=== PATIENT | male | born 1965 | race Two or more races ===

== ENCOUNTER 2021-06-03 15:07 | Emergency (ER) | payer OTHER ==
[2021-06-03 15:22] VITALS: BP 170/95; PULSE 86; RESP 16; TEMP 97.8
[2021-06-03] MEDS ORDERED: valACYclovir HCL 1,000 MG TABLET PO STA (15:33)
[2021-06-03] MEDS ORDERED: predniSONE 50 MG TAB PO STA (15:33)
--- NOTE | 2021-06-03 15:42 | ED ---
General Adult HPI - General Chief complaint: Neuro Symptoms/Deficit Stated complaint: facial numbness Time Seen by Provider: 06/03/21 15:26 Source: patient, RN notes reviewed Mode of arrival: ambulatory Limitations: no limitations - History of Present Illness Initial comments: Patient is a pleasant 55-year-old male presenting to the emergency department with difficulty with weakness on his right side of his face. Patient noticed this yesterday. It has progressed some since that time. Patient denies visual problems however does have difficulty shutting his eyelid. Patient states it feels a little bit dry. No history of similar symptoms previously. No speech problems or cognition problems. No difficulty with walking or balance. No extremity weakness or paresthesias or loss of sensation. - Related Data Previous Rx's Medication Instructions Recorded predniSONE 50 mg PO DAILY #6 tab 06/03/21 valACYclovir HCL [Valtrex] 1,000 mg PO Q8HR #21 tab 06/03/21 Allergies Allergy/AdvReac Type Severity Reaction Status Date / Time No Known Allergies Allergy Verified 06/03/21 15:16 Review of Systems ROS Statement: Those systems with pertinent positive or pertinent negative responses have been documented in the HPI. ROS Other: All systems not noted in ROS Statement are negative. Constitutional: Denies: fever Eyes: Reports: as per HPI. Denies: eye pain ENT: Denies: ear pain Respiratory: Denies: cough Cardiovascular: Denies: chest pain Endocrine: Denies: fatigue Gastrointestinal: Denies: nausea Genitourinary: Denies: dysuria Neurological: Reports: as per HPI. Denies: headache, confusion, abnormal gait Past Medical History Past Medical History: Diabetes Mellitus, Hypertension History of Any Multi-Drug Resistant Organisms: None Reported Past Surgical History: No Surgical Hx Reported Past Psychological History: No Psychological Hx Reported Smoking Status: Never smoker Past Alcohol Use History: None Reported Past Drug Use History: None Reported General Exam Limitations: no limitations General appearance: alert, in no apparent distress Head exam: Present: normocephalic Eye exam: Present: normal appearance, PERRL, EOMI ENT exam: Present: TM's normal bilaterally Neck exam: Present: normal inspection Respiratory exam: Present: normal lung sounds bilaterally Cardiovascular Exam: Present: regular rate, normal rhythm GI/Abdominal exam: Present: soft. Absent: tenderness Extremities exam: Present: normal inspection Neurological exam: Present: alert, oriented X3, CN II-XII intact (Except for right-sided facial weakness that does include the forehead. Difficulty closing the right eye) Expanded Neurological exam: Present: protecting the airway Patient oriented to: Present: person, place, time Speech: Present: fluid speech Cranial nerves: EOM's Intact: Normal, Facial Palsy without Forehead Movement: Abnormal Right Sensory exam: Upper Extremity Light Touch: Normal, Lower Extremity Light Touch: Normal Motor strength exam: RUE: 5, LUE: 5, RLE: 5, LLE: 5 Eye Response: (4) open spontaneously Motor Response: (6) obeys commands Verbal Response: (5) oriented Psychiatric exam: Present: normal affect, normal mood Skin exam: Present: normal color Course Vital Signs 06/03/21 15:16 Temperature 97.8 F Pulse Rate 86 Respiratory 16 Rate Blood Pressure 170/95 O2 Sat by Pulse 96 Oximetry Disposition Clinical Impression: Mariee's palsy Disposition: HOME SELF-CARE Condition: Stable Instructions (If sedation given, give patient instructions): Mariee Palsy (ED) Additional Instructions: Please do follow-up through primary care physician in the next day or 2 for recheck. Prescriptions have been sent to pharmacy. Apply Lacri-Lube or similar eye lubricant 4 times daily and before bed to the right eye. Tape the right eye shut at bedtime. Return for confusion, speech problems, extremity weakness, worsening or changing symptoms or other concerns. Prescriptions: predniSONE 50 mg PO DAILY #6 tab valACYclovir HCL [Valtrex] 1,000 mg PO Q8HR #21 tab Is patient prescribed a controlled substance at d/c from ED?: No Referrals: Steve Ceballos MD [STAFF PHYSICIAN] - 1-2 days Time of Disposition: 15:41
== END 2021-06-03 15:49 | disposition home or self-care (01) ==
LOC: EC 15:07
DX: G51.0 Bell's palsy (principal); E11.9 Type 2 diabetes mellitus without complications; I10 Essential (primary) hypertension
CPT/HCPCS: 99284; J7512

== ENCOUNTER 2021-06-05 19:15 | Emergency (ER) | payer OTHER ==
[2021-06-05 19:32] LABS: Basophils % (A) 0 %; Eosinophils # (A) 0.1 k/uL (0-0.7); Eosinophils % (A) 1 %; HCT 42.1 % (39.0-53.0); HGB 14.5 gm/dL (13.0-17.5); Lymphocytes % (A) 24 %; MCH 29.3 pg (25.0-35.0); MCHC 34.6 g/dL (31.0-37.0); MCV 84.6 fL (80.0-100.0); Mean Platelet Volume 9.2; Monocytes # (A) 0.3 k/uL (0-1.0); Monocytes % (A) 4 %; Neutrophils # (A) 5.7 k/uL (1.3-7.7); Neutrophils % (A) 69 %; Platelet Count 209 k/uL (150-450); RBC 4.97 m/uL (4.30-5.90); RDW 13.7 % (11.5-15.5); WBC 8.3 k/uL (3.8-10.6)
[2021-06-05 19:40] LABS: ALT 18 U/L (4-49); AST 21 U/L (17-59); African American GFR (CKD) >90 (>60 ml/min/1.73 sqM); Albumin 4.3 g/dL (3.5-5.0); Alkaline Phosphatase 74 U/L (38-126); Anion Gap 9 mmol/L; Blood Urea Nitrogen 26 mg/dL (9-20); Calcium 9.6 mg/dL (8.4-10.2); Carbon Dioxide 24 mmol/L (22-30); Chloride 101 mmol/L (98-107); Glucose 254 mg/dL (74-99); Non-African American GFR(CKD) 81 (>60 ml/min/1.73 sqM); Potassium 5.1 mmol/L (3.5-5.1); Sodium 134 mmol/L (137-145); Total Bilirubin 0.6 mg/dL (0.2-1.3); Total Protein 7.4 g/dL (6.3-8.2)
[2021-06-05 19:47] LABS: Prothrombin Time 10.6 sec (9.0-12.0)
[2021-06-05 20:08] VITALS: BP 169/103; PULSE 88; RESP 19; TEMP 98.1
--- NOTE | 2021-06-05 20:08 | ED ---
General Adult HPI - General Stated complaint: Hypertension - History of Present Illness Initial comments: Jimmy is a 55yo M who presents to the ER today for evaluation of HTN. Patient was seen 2 days ago and diagnosed with [place] Palsy of the right side of the face, he was given steroids and antivirals which he has been taking. Patient states he had "an incident" at home today in which he was in an verbal argument with someone and got quite upset, after he checked his BP and it was 200/111. He reports he is feeling all better now, no complaints. He has been compliant with his oral medications including antihypertensives. - Related Data Previous Rx's Medication Instructions Recorded predniSONE 50 mg PO DAILY #6 tab 06/03/21 valACYclovir HCL [Valtrex] 1,000 mg PO Q8HR #21 tab 06/03/21 Allergies Allergy/AdvReac Type Severity Reaction Status Date / Time No Known Allergies Allergy Verified 06/05/21 20:08 Review of Systems ROS Statement: Those systems with pertinent positive or pertinent negative responses have been documented in the HPI. ROS Other: All systems not noted in ROS Statement are negative. Past Medical History Past Medical History: Diabetes Mellitus, Hypertension History of Any Multi-Drug Resistant Organisms: None Reported Past Surgical History: No Surgical Hx Reported Past Psychological History: No Psychological Hx Reported Smoking Status: Never smoker Past Alcohol Use History: None Reported Past Drug Use History: None Reported General Exam - General Exam Comments Initial Comments: Physical Exam GENERAL: Patient is well-developed and well-nourished. Patient is nontoxic and well- hydrated and is in no distress. HENT: Normocephalic, Atraumatic. Right-sided facial droop, inability to fully close eye or l lift the right eyebrow EYES: Right eye has difficulty closing and there is some tearing though the patient has no pain PULMONARY: Unlabored respirations. No audible rales rhonchi or wheezing was noted. CARDIOVASCULAR: There is a regular rate and rhythm without any murmurs gallops or rubs. No carotid bruit ABDOMEN: Soft and nontender with normal bowel sounds. SKIN: Skin is clear with no lesions or rashes and otherwise unremarkable. : Deferred NEUROLOGIC: Patient is alert and oriented x3. Moving all extremities spontaneously MUSCULOSKELETAL: Normal extremities with adequate strength and full range of motion. No lower extremity swelling or edema. No calf tenderness. PSYCHIATRIC: Normal psychiatric evaluation. Course Vital Signs 06/05/21 20:05 Temperature 98.1 F Pulse Rate 88 Respiratory 19 Rate Blood Pressure 169/103 O2 Sat by Pulse 98 Oximetry Medical Decision Making - Medical Decision Making Patient was seen and evaluated history is obtained from patient, labs were reviewed and were unremarkable patient has hypertension but not alarmingly so, physical exam remains consistent with Mariee's palsy with right-sided facial paralysis and some tearing of the eye. The patient inquired about possible need for a computed tomography scan of the brain due to the facial droop, however I again reiterated to the patient that the eye involvement is diagnostic of Mariee's palsy and at this time a head CT is not warranted. Patient seemed reassured by this and was comfortable with plan for discharge home. - Lab Data Result diagrams: 06/05/21 19:21 06/05/21 19:21 Lab Results 06/05/21 06/05/21 06/05/21 Range/Units 19:21 19:21 19:21 WBC 8.3 (3.8-10.6) k/uL RBC 4.97 (4.30-5.90) m/uL Hgb 14.5 (13.0-17.5) gm/dL Hct 42.1 (39.0-53.0) % MCV 84.6 (80.0-100.0) fL MCH 29.3 (25.0-35.0) pg MCHC 34.6 (31.0-37.0) g/dL RDW 13.7 (11.5-15.5) % Plt Count 209 (150-450) k/uL MPV 9.2 Neutrophils % 69 % Lymphocytes % 24 % Monocytes % 4 % Eosinophils % 1 % Basophils % 0 % Neutrophils # 5.7 (1.3-7.7) k/uL Lymphocytes # 2.0 (1.0-4.8) k/uL Monocytes # 0.3 (0-1.0) k/uL Eosinophils # 0.1 (0-0.7) k/uL Basophils # 0.0 (0-0.2) k/uL PT 10.6 (9.0-12.0) sec INR 1.0 (<1.2) APTT 19.0 L (22.0-30.0) sec Sodium 134 L (137-145) mmol/L Potassium 5.1 (3.5-5.1) mmol/L Chloride 101 (98-107) mmol/L Carbon Dioxide 24 (22-30) mmol/L Anion Gap 9 mmol/L BUN 26 H (9-20) mg/dL Creatinine 1.04 (0.66-1.25) mg/dL Est GFR (CKD-EPI)AfAm >90 (>60 ml/min/1.73 sqM) Est GFR (CKD-EPI)NonAf 81 (>60 ml/min/1.73 sqM) Glucose 254 H (74-99) mg/dL Calcium 9.6 (8.4-10.2) mg/dL Total Bilirubin 0.6 (0.2-1.3) mg/dL AST 21 (17-59) U/L ALT 18 (4-49) U/L Alkaline Phosphatase 74 (38-126) U/L Troponin I (0.000-0.034) ng/mL NT-Pro-B Natriuret Pep pg/mL Total Protein 7.4 (6.3-8.2) g/dL Albumin 4.3 (3.5-5.0) g/dL 06/05/21 06/05/21 Range/Units 19:21 19:21 WBC (3.8-10.6) k/uL RBC (4.30-5.90) m/uL Hgb (13.0-17.5) gm/dL Hct (39.0-53.0) % MCV (80.0-100.0) fL MCH (25.0-35.0) pg MCHC (31.0-37.0) g/dL RDW (11.5-15.5) % Plt Count (150-450) k/uL MPV Neutrophils % % Lymphocytes % % Monocytes % % Eosinophils % % Basophils % % Neutrophils # (1.3-7.7) k/uL Lymphocytes # (1.0-4.8) k/uL Monocytes # (0-1.0) k/uL Eosinophils # (0-0.7) k/uL Basophils # (0-0.2) k/uL PT (9.0-12.0) sec INR (<1.2) APTT (22.0-30.0) sec Sodium (137-145) mmol/L Potassium (3.5-5.1) mmol/L Chloride (98-107) mmol/L Carbon Dioxide (22-30) mmol/L Anion Gap mmol/L BUN (9-20) mg/dL Creatinine (0.66-1.25) mg/dL Est GFR (CKD-EPI)AfAm (>60 ml/min/1.73 sqM) Est GFR (CKD-EPI)NonAf (>60 ml/min/1.73 sqM) Glucose (74-99) mg/dL Calcium (8.4-10.2) mg/dL Total Bilirubin (0.2-1.3) mg/dL AST (17-59) U/L ALT (4-49) U/L Alkaline Phosphatase (38-126) U/L Troponin I <0.012 (0.000-0.034) ng/mL NT-Pro-B Natriuret Pep 37 pg/mL Total Protein (6.3-8.2) g/dL Albumin (3.5-5.0) g/dL Disposition Clinical Impression: Mariee's palsy, HTN (hypertension), Hyperglycemia due to type 2 diabetes mellitus Disposition: HOME SELF-CARE Condition: Stable Additional Instructions: Continue your home medications, stay hydrated, steroids can increase your blood sugar Continue your blood pressure medications and follow up with your primary care Is patient prescribed a controlled substance at d/c from ED?: No Referrals: None,Stated [Primary Care Provider] - 1-2 days
== END 2021-06-05 20:45 | disposition home or self-care (01) ==
LOC: EC 19:15
DX: E11.65 Type 2 diabetes mellitus with hyperglycemia (principal); I10 Essential (primary) hypertension; G51.0 Bell's palsy
CPT/HCPCS: 36415; 80053; 83880; 84484; 85025; 85610; 85730; 93005; 99283

== ENCOUNTER 2021-06-24 18:47 | Emergency (ER) | payer OTHER ==
[2021-06-24 20:40] VITALS: TEMP 97.7
[2021-06-25] MEDS ORDERED: METOPROLOL TARTRATE 50 MG TAB PO STA (01:06)
[2021-06-25] MEDS ORDERED: cloNIDine HCL 0.1 MG TAB PO STA (01:06)
--- NOTE | 2021-06-25 01:06 | ED ---
Recheck HPI - General Chief Complaint: Recheck/Abnormal Lab/Rx Stated Complaint: Revisit/High BP Time Seen by Provider: 06/25/21 00:31 Source: patient, RN notes reviewed, old records reviewed Mode of arrival: ambulatory Limitations: no limitations - History of Present Illness Initial Comments: This is a 55-year-old male to the emergency department for evaluation history of high blood pressure. Patient presents on a revisit for evaluation in regards to his high blood pressure. He take his blood pressure home noting it to be elevated mild headache does admit to significant anxiety no chest pain or shortness of breath no abdominal pain. Patient is taking his medications as prescribed. No travel history or sick contacts and no other complaints MD Complaint: other (Abnormal blood pressure) -: unknown Returns Today for: persistent/worsening pain related to initial visit (Mild headache) Symptoms Since Prior Visit: no new symptoms Context: planned re-check Associated Symptoms: none Treatments Prior to Arrival: other medications - Related Data Home Medications Medication Instructions Recorded Confirmed Lisinopril [Zestril] 20 mg PO DAILY 06/23/21 06/23/21 glyBURIDE [Diabeta] 2.5 mg PO BID 06/23/21 06/23/21 metFORMIN HCL 500 mg PO BID 06/23/21 06/23/21 Previous Rx's Medication Instructions Recorded amLODIPine [Norvasc] 5 mg PO DAILY 30 Days #30 tab 06/23/21 Metoprolol Tartrate [Lopressor] 50 mg PO BID #60 tab 06/25/21 Allergies Allergy/AdvReac Type Severity Reaction Status Date / Time No Known Allergies Allergy Verified 06/24/21 20:40 Review of Systems ROS Statement: Those systems with pertinent positive or pertinent negative responses have been documented in the HPI. ROS Other: All systems not noted in ROS Statement are negative. Past Medical History Past Medical History: Diabetes Mellitus, Hypertension History of Any Multi-Drug Resistant Organisms: None Reported Past Surgical History: No Surgical Hx Reported Past Psychological History: No Psychological Hx Reported Smoking Status: Never smoker Past Alcohol Use History: None Reported Past Drug Use History: None Reported General Exam Limitations: no limitations General appearance: anxious Head exam: Present: atraumatic, normocephalic, normal inspection Eye exam: Present: normal appearance, PERRL, EOMI. Absent: scleral icterus, conjunctival injection, periorbital swelling ENT exam: Present: normal exam, mucous membranes moist Neck exam: Present: normal inspection. Absent: tenderness, meningismus, lymphadenopathy Respiratory exam: Present: normal lung sounds bilaterally. Absent: respiratory distress, wheezes, rales, rhonchi, stridor Cardiovascular Exam: Present: regular rate, normal rhythm, normal heart sounds. Absent: systolic murmur, diastolic murmur, rubs, gallop, clicks GI/Abdominal exam: Present: soft, normal bowel sounds. Absent: distended, tenderness, guarding, rebound, rigid Extremities exam: Present: normal inspection, full ROM, normal capillary refill. Absent: tenderness, pedal edema, joint swelling, calf tenderness Back exam: Present: normal inspection Neurological exam: Present: alert, oriented X3, CN II-XII intact Psychiatric exam: Present: normal affect, normal mood Skin exam: Present: warm, dry, intact, normal color. Absent: rash Course Vital Signs 06/24/21 06/25/21 06/25/21 20:36 01:05 01:09 Temperature 97.7 F Pulse Rate 103 H 96 74 Respiratory 22 20 Rate Blood Pressure 162/102 160/100 146/104 O2 Sat by Pulse 98 98 Oximetry 06/25/21 06/25/21 01:46 02:38 Temperature Pulse Rate 87 79 Respiratory 16 20 Rate Blood Pressure 128/90 137/94 O2 Sat by Pulse 98 97 Oximetry - Reevaluation(s) Reevaluation #1: 06/25/21 Medical record is reviewed Patient symptoms are improving here in the emergency department Patient is informed of results and questions have been answered Medical Decision Making - Medical Decision Making 55 male for revisits of high blood pressure. Blood pressure with headache. Revisit. Blood pressure currently controlled and patient can be discharged home Disposition Clinical Impression: Heart palpitations, HTN (hypertension) Disposition: HOME SELF-CARE Condition: Good Instructions (If sedation given, give patient instructions): Hypertension (ED) Prescriptions: Metoprolol Tartrate [Lopressor] 50 mg PO BID #60 tab Is patient prescribed a controlled substance at d/c from ED?: No Referrals: None,Stated [Primary Care Provider] - 1-2 days
[2021-06-25 02:39] VITALS: BP 137/94; PULSE 79; RESP 20
[2021-06-25] MEDS ORDERED: ACETAMINOPHEN TAB 500 MG TAB PO STA (02:55)
== END 2021-06-25 03:05 | disposition home or self-care (01) ==
LOC: EC 18:47
DX: I10 Essential (primary) hypertension (principal); R00.2 Palpitations; E11.9 Type 2 diabetes mellitus without complications; Z79.84 Long term (current) use of oral hypoglycemic drugs; Z79.899 Other long term (current) drug therapy
CPT/HCPCS: 99283

== ENCOUNTER → 2021-07-17 | Outpatient (CLI) | payer OTHER ==
--- NOTE | 2021-07-17 15:17 | XR ---
Right shoulder HISTORY: M 25.511 3 views the right shoulder, no comparisons Bone mineralization and alignment are maintained. There is hypertrophic change of the humeral head, j oint space loss, subchondral sclerosis and possible geode formation. Difficult to exclude a loose bod y. No fracture or dislocation. Right lung as visualized is normal. 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
== END | disposition home or self-care (01) ==
LOC: RADXRMAIN 14:31
PROVIDERS: ATTEND Family Medicine
DX: M19.011 Primary osteoarthritis, right shoulder (principal)

== ENCOUNTER → 2021-09-12 | Outpatient (CLI) | payer OTHER ==
--- NOTE | 2021-09-12 17:49 | MR ---
EXAMINATION TYPE: MR brain wo/w con DATE OF EXAM: 09/12/2021 COMPARISON: HISTORY: Facial droop, expressive aphasia, dizziness, right side weakness. CONTRAST: Standard multiplanar, multisequence MRI departmental protocol images were obtained without contrast a nd with 12 mL intravenous Gadavist gadolinium contrast. Multiplanar multiecho imaging of the brain without and with IV contrast. There is mild cerebral cortical atrophy. There is no mass effect or midline shift. No evidence of int racranial hemorrhage. Diffusion images show no evidence of an acute infarct. The lindo and white matte r structures are overall fairly normal signal pattern. No evidence of cerebral edema. Brainstem is in tact. The sella turcica appears normal. Optic chiasm appears normal. Corpus callosum appears normal. No evidence of orbital mass. Contrast images show no pathologic enhancement. There is normal enhancement of the venous sinuses. No evidence of a posterior fossa mass. IMPRESSION: Minimal cerebral atrophy. No acute intracranial abnormality.
== END | disposition home or self-care (01) ==
LOC: RADMRIMAIN 14:11
PROVIDERS: ATTEND Family Medicine
DX: G31.9 Degenerative disease of nervous system, unspecified (principal); R47.01 Aphasia
CPT/HCPCS: 70553; A9585

== ENCOUNTER → 2021-12-14 | Outpatient (CLI) | payer OTHER ==
--- NOTE | 2021-12-14 16:00 | US ---
EXAMINATION TYPE: US carotid duplex BILAT DATE OF EXAM: 12/14/2021 COMPARISON: NONE CLINICAL HISTORY: 55-year-old male R26.89 balance disorder. Imbalance, dizziness TECHNIQUE: Carotid duplex ultrasound examination. Indirect Doppler criteria was utilized. FINDINGS: EXAM MEASUREMENTS: RIGHT: Peak Systolic Velocity (PSV) cm/sec ----- Right CCA: 94.8 ----- Right ICA: 95.8 ----- Right ECA: 110 ICA/CCA ratio: 1.01 RIGHT: End Diastole cm/sec ----- Right CCA: 25.3 ----- Right ICA: 63.1 ----- Right ECA: 10.9 LEFT: Peak Systolic Velocity (PSV) cm/sec ----- Left CCA: 110 ----- Left ICA: 110 ----- Left ECA: 107 ICA/CCA ratio: 1.00 LEFT: End Diastole cm/sec ----- Left CCA: 32.7 ----- Left ICA: 29.3 ----- Left ECA: 13.6 VERTEBRALS (direction of flow): Right Vertebral: Antegrade Left Vertebral: Antegrade Rhythm: Normal LIFE ADVISOR NOTES: Minimal plaque bilateral bifurcations. No evidence of increased velocities. Lymph node left neck = 1.9cm IMPRESSION: 1. No hemodynamically significant internal carotid artery stenosis on either side. 2. Prominent but nonenlarged 1.9 x 0.7 cm lymph node along the left side of the neck. Probably reacti ve/post inflammatory. This can be followed clinically. If any enlarging lymph node is appreciated, e area can be rescanned. Criteria for Assigning % of Stenosis / Diameter reduction (Estimation based on the indirect measurements of the internal carotid artery velocities (ICA PSV). 1. Normal (no stenosis)=ICA PSV < 125 cm/s: ratio < 2.0: ICA EDV<40 cm/s. 2. Less than 50% stenosis=ICA PSV < 125 cm/s: ratio < 2.0: ICA EDV<40 cm/s. 3. 50 to 69% stenosis=ICA PSV of 125 to 230 cm/s: ration 2.0 ? 4.0: ICA EDV 40-100 cm/s. 4. Greater than 70% stenosis to near occlusion= ICA PSV > 230 cm/s: ratio > 4.0: ICA EDV > 100 cm/s. 5. Near occlusion= ICA PSV velocities may be low or undetectable: variable ratio and ICA EDV. 6. Total occlusion=unable to detect flow.
== END | disposition home or self-care (01) ==
LOC: RADUSWWP 09:48
PROVIDERS: ATTEND Psychiatry & Neurology Neurology
DX: R59.0 Localized enlarged lymph nodes (principal); Z79.899 Other long term (current) drug therapy
CPT/HCPCS: 82306; 82607; 84436; 84443; 93880

== ENCOUNTER → 2022-01-27 | Outpatient (CLI) | payer OTHER ==
--- NOTE | 2022-01-27 15:22 | XR ---
EXAMINATION TYPE: XR lumbar spine 2 or 3V DATE OF EXAM: 01/27/2022 CLINICAL HISTORY: pain TECHNIQUE: Three views of the lumbar spine are submitted. COMPARISON: None. FINDINGS: Severe degenerative narrowing L5-S1 with a mild narrowing at the remaining levels. A mild ventral spo ndylosis. Moderate facet joint arthropathy seen. Loss of vertebral body height involving the superior endplate of L1 is of uncertain age and/or etiology. Loss of height is estimated at 15%. IMPRESSION: 1. Mild superior endplate loss of height L1 of uncertain age and/or etiology.
--- NOTE | 2022-01-27 16:00 | XR ---
EXAMINATION TYPE: XR cervical spine comp DATE OF EXAM: 01/27/2022 COMPARISON: NONE HISTORY: Pain TECHNIQUE: Four views are submitted. FINDINGS: The odontoid is intact. There are no compression deformities. The prevertebral soft tissue structur es are within normal limits. A severe degenerative disc disease at levels C4-T1. Small bilateral cer vical ribs noted. IMPRESSION: 1. Multilevel severe degenerative disc disease..
== END | disposition home or self-care (01) ==
LOC: RADXRMAIN 14:33
PROVIDERS: ATTEND Psychiatry & Neurology Neurology
DX: M50.33 Other cervical disc degeneration, cervicothoracic region (principal); M51.86 Other intervertebral disc disorders, lumbar region
CPT/HCPCS: 72050; 72100

== ENCOUNTER → 2022-03-16 | Outpatient (CLI) | payer OTHER ==
--- NOTE | 2022-03-23 10:27 | US ---
EXAMINATION TYPE: US arterial LE single level DATE OF EXAM: 03/16/2022 1:44 PM CLINICAL HISTORY: I77.9 DISORDER OF ARTERIES AND ARTERIOLES. History of: Smoker: No Hypertension: Yes Diabetic: Yes Hyperlipidemia: No TIA/CVA: Yes Previous Vascular Surgery: No CAD: No RI: No Vascular Ulcers: No Claudication: No Gangrene: No Doppler Waveforms: Right: Multiphasic Left: Multiphasic Right Brachial Pressure: 108 Left Brachial Pressure: 104 Ankle-Brachial Indices: Right: 1.44 Left: 1.28 Toe Brachial Indices: Right: 0.90 Left: 1.19 IMPRESSION: Normal IVET and TBI values.
== END | disposition home or self-care (01) ==
LOC: RADUSWWP 13:01
PROVIDERS: ATTEND Podiatrist
DX: I77.9 Disorder of arteries and arterioles, unspecified (principal); E11.9 Type 2 diabetes mellitus without complications; I10 Essential (primary) hypertension; Z86.73 Personal history of transient ischemic attack (TIA), and cerebral infarction without residual deficits
CPT/HCPCS: 93922

== ENCOUNTER → 2022-07-01 | Outpatient (CLI) | payer OTHER ==
--- NOTE | 2022-07-01 14:42 | XR ---
EXAMINATION TYPE: XR chest 2V DATE OF EXAM: 07/01/2022 COMPARISON: 06/23/2021 TECHNIQUE: PA and lateral views submitted. HISTORY: Shortness of breath FINDINGS: The lungs are clear and there is no pneumothorax, pleural effusion, or focal pneumonia. Heart size normal and no overt failure. Osseous structures demonstrate hypertrophic and degenerative changes of the spine. There are elevated hemidiaphragms bilaterally. There is bilateral subsegmental atelectasis or infiltrate. IMPRESSION: 1. Elevated bilateral hemidiaphragms with subsegmental consolidation most likely atelectasis.
== END | disposition home or self-care (01) ==
LOC: RADXRMAIN 13:43
PROVIDERS: ATTEND Family Medicine
DX: J98.6 Disorders of diaphragm (principal); R06.02 Shortness of breath
CPT/HCPCS: 71046

== ENCOUNTER → 2022-07-08 | Outpatient (CLI) | payer OTHER ==
--- NOTE | 2022-07-08 10:26 | US ---
EXAMINATION TYPE: US extremity nonvasc mass BURKE DATE OF EXAM: 07/08/2022 COMPARISON: NONE CLINICAL INDICATION: Male, 56 years old with history of R22.2 MASS ON BACK; Palpable lump on left ray e of back, patient states was felt recently by his physical therapist FINDINGS/IMPRESSION: Within the left mid back at site of palpable abnormality is a 1.2 x 0.7 x 1.9 cm superficial hypoechoic area which blends in with the surrounding tissue. No internal color flow iden tified. This demonstrates benign characteristics and is favored to represent a lipoma.
== END | disposition home or self-care (01) ==
LOC: RADUSWWP 09:50
PROVIDERS: ATTEND Family Medicine
DX: R22.2 Localized swelling, mass and lump, trunk (principal)

== ENCOUNTER → 2022-08-24 | Outpatient (CLI) | payer OTHER | LOC: CPPFTMAIN 11:28 | PROVIDERS: ATTEND Family Medicine | DX: R06.02 Shortness of breath (principal) | CPT/HCPCS: 94060; 94726; 94729 ==

== ENCOUNTER → 2022-08-26 | Outpatient (CLI) | payer OTHER ==
--- NOTE | 2022-08-26 16:16 | US ---
EXAMINATION TYPE: US Left Groin. DATE OF EXAM: 08/26/2022 COMPARISON: NONE CLINICAL INDICATION: Male, 56 years old with history of R10.2 LLQ PAIN; Left groin pain TECHNIQUE: Targeted scanning along the left inguinal region. FINDINGS: Heel Slugger notes: Scanned left groin area. No abnormalities seen. IMPRESSION: Images provided by the software reliability engineer show no discrete abnormality. The software reliability engineer also was unable to identify any abnormality during real-time scanning.
== END | disposition home or self-care (01) ==
LOC: RADUSWWP 09:01
PROVIDERS: ATTEND Family Medicine
DX: R10.32 Left lower quadrant pain (principal)

== ENCOUNTER 2022-09-08 13:19 | Emergency (ER) | payer OTHER ==
[2022-09-08 13:27] VITALS: RESP 16
--- NOTE | 2022-09-08 14:24 | US ---
EXAMINATION TYPE: US venous doppler duplex LE RT DATE OF EXAM: 09/08/2022 2:09 PM COMPARISON: NONE CLINICAL INDICATION: Male, 56 years old with history of Right leg pain and redness; Medial knee and calf palpable with redness. Not on blood thinners. SIDE PERFORMED: Right TECHNIQUE: The lower extremity deep venous system is examined utilizing real time linear array sonog gilda with graded compression, doppler sonography and color-flow sonography. VESSELS IMAGED: Common Femoral Vein Deep Femoral Vein Greater Saphenous Vein * Femoral Vein Popliteal Vein Small Saphenous Vein * Proximal Calf Veins (* superficial vessels) Right Leg: Negative for DVT. SVT visualized at both patients area of concern at medial knee and medial calf. IMPRESSION: 1. Right lower extremity ultrasound negative for deep venous thrombosis. 2. Note is made of superficial venous thrombosis in the medial calf and knee.
[2022-09-08] MEDS ORDERED: IBUPROFEN 600 MG STARTER PACK 4 TAB BTL PO STA (17:15)
[2022-09-08] MEDS ORDERED: CEPHALEXIN 500MG STARTER PACK 4 CAP BTL PO STA (17:15)
[2022-09-08] MEDS ORDERED: ASPIRIN 81 MG PO STA (17:15)
[2022-09-08] MEDS ORDERED: IBUPROFEN 800 MG TAB PO STA (17:15)
[2022-09-08] MEDS ORDERED: CEPHALEXIN 500 MG CAP PO STA (17:15)
--- NOTE | 2022-09-08 17:17 | ED ---
Extremity Problem HPI - General Chief complaint: Extremity Problem,Nontraumatic Stated complaint: rt knee pain Time Seen by Provider: 09/08/22 16:12 Source: patient Mode of arrival: ambulatory Limitations: no limitations - History of Present Illness Initial comments: This is a 56-year-old male to the emergency department for evaluation patient presents today for evaluation regards to leg pain right leg pain. Possible DVT sent for evaluation of possible DVT for evaluation. MD Complaint: extremity pain, extremity swelling, joint swelling, joint pain -: days(s) Location: right, knee History of Same: Yes Radiation: proximal, distal Severity scale (1-10): 7 Quality: aching Consistency: constant Improves with: nothing Worsens with: nothing Associated Symptoms: denies other symptoms - Related Data Home Medications Medication Instructions Recorded Confirmed glyBURIDE [Diabeta] 2.5 mg PO BID 06/23/21 06/23/21 lisinopriL [Zestril] 20 mg PO DAILY 06/23/21 06/23/21 metFORMIN HCL 500 mg PO BID 06/23/21 06/23/21 Previous Rx's Medication Instructions Recorded amLODIPine [Norvasc] 5 mg PO DAILY 30 Days #30 tab 06/23/21 Metoprolol Tartrate [Lopressor] 50 mg PO BID #60 tab 06/25/21 Cephalexin [Keflex] 500 mg PO Q6HR #28 cap 09/09/22 Allergies Allergy/AdvReac Type Severity Reaction Status Date / Time No Known Allergies Allergy Verified 09/08/22 13:25 Review of Systems ROS Statement: Those systems with pertinent positive or pertinent negative responses have been documented in the HPI. ROS Other: All systems not noted in ROS Statement are negative. 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 Absent: scleral icterus, conjunctival injection, periorbital swelling ENT exam: Present: normal exam, mucous membranes moist Neck exam: Present: normal inspection. Absent: tenderness, meningismus, lymphadenopathy Respiratory exam: Present: normal lung sounds bilaterally. Absent: respiratory distress, wheezes, rales, rhonchi, stridor Cardiovascular Exam: Present: regular rate, normal rhythm, normal heart sounds. Absent: systolic murmur, diastolic murmur, rubs, gallop, clicks GI/Abdominal exam: Present: soft, normal bowel sounds. Absent: distended, tenderness, guarding, rebound, rigid Extremities exam: Present: normal inspection, full ROM, normal capillary refill. Absent: tenderness, pedal edema, joint swelling, calf tenderness Back exam: Present: normal inspection Neurological exam: Present: alert, oriented X3, CN II-XII intact Psychiatric exam: Present: normal affect, normal mood Skin exam: Present: warm, dry, intact, normal color. Absent: rash Course Vital Signs 09/08/22 09/08/22 13:25 17:35 Temperature 98 F 98.1 F Pulse Rate 73 81 Respiratory 16 16 Rate Blood Pressure 124/88 121/77 O2 Sat by Pulse 95 96 Oximetry - Reevaluation(s) Reevaluation #1: 09/08/22 23:00 minute medical records reviewed Reevaluation #2: 09/08/22 23:00 Patient informed of results questions answered Reevaluation #3: 09/08/22 23:01 [place] results and questions answered Reevaluation #4: 09/08/22 23:01 Was pt. sent in by a medical professional or institution? @ -no Did you speak to anyone other than the patient for history? @ -no Did you review nursing and triage notes? @ -agree Were old charts reviewed? @ -no Differential Diagnosis? @ -prior EKG interpreted by me (3pts min.)? @ -no X-rays interpreted by me (1pt min.)? @ -no CT interpreted by me (1pt min.)? @ -no U/S interpreted by me (1pt. min.)? @ -yes What testing was considered but not performed? (CT, X-rays, U/S, labs)? Why? @ -no What meds were considered but not given? Why? @ -no Did you discuss the management of the patient with other professionals? @ -no Did you reconcile home meds? @ -no Was smoking cessation discussed for >3mins.? @ -no Was critical care preformed (if so, how long)? @ -no Were there social determinants of health that impacted care today? How? (Homelessness, low income, unemployed, alcoholism, drug addiction, transportation, low edu. Level, literacy, decrease access to med. care, [facility], rehab)? @ -no Was there de-escalation of care discussed even if they declined? (Discuss DNR or withdrawal of care, Hospice)? @ -no What co-morbidities impacted this encounter? (DM, HTN, Smoking, COPD, CAD, Cancer, CVA, Hep., AIDS, mental health diagnosis, sleep apnea, morbid obesity)? @ -none Was patient admitted / discharged? @ -56 male to the emergency department for evaluation of right leg pain does have superficial venous thrombosis placed on aspirin, no prior history of DVT and patient can be discharged home Discharge Undiagnosed new problem with uncertain prognosis? @ -no Drug Therapy requiring intensive monitoring for toxicity (Heparin, Nitro, Insulin, Cardizem)? @ -no Were any procedures done? @ -no Diagnosis/symptom? @ -Superficial venous thrombosis Acute, or Chronic, or Acute on Chronic? @ -no Uncomplicated (without systemic symptoms) or Complicated (systemic symptoms)? @ -uncomplicated Side effects of treatment? @ -no Exacerbation, Progression, or Severe Exacerbation] @ -no Poses a threat to life or bodily function? @ -Yes with DVT and possible PE Medical Decision Making - Medical Decision Making 56 male to the emergency department for evaluation of right leg pain does have superficial venous thrombosis placed on aspirin, no prior history of DVT and patient can be discharged home - Radiology Data Radiology results: report reviewed (Ultrasound does show superficial venous thrombosis), image reviewed Disposition Clinical Impression: Acute superficial venous thrombosis of right lower extremity, Thrombophlebitis Disposition: HOME SELF-CARE Condition: Good Instructions (If sedation given, give patient instructions): Superficial Thrombophlebitis (ED) Prescriptions: Cephalexin [Keflex] 500 mg PO Q6HR #28 cap Is patient prescribed a controlled substance at d/c from ED?: No Referrals: Davon Dumont MD [Medical Doctor] - 1-2 days Time of Disposition: 17:15
[2022-09-08 17:36] VITALS: BP 121/77; PULSE 81; TEMP 98.1
== END 2022-09-08 17:36 | disposition home or self-care (01) ==
LOC: EC 13:19
DX: I82.811 Embolism and thrombosis of superficial veins of right lower extremity (principal); E11.9 Type 2 diabetes mellitus without complications; I10 Essential (primary) hypertension; Z79.84 Long term (current) use of oral hypoglycemic drugs; Z79.899 Other long term (current) drug therapy
CPT/HCPCS: 99284

== ENCOUNTER → 2022-10-01 | Outpatient (CLI) | payer OTHER ==
[2022-10-01 11:39] LABS: African American GFR (CKD) >90 (>60 ml/min/1.73 sqM); Blood Urea Nitrogen 28 mg/dL (9-20); Non-African American GFR(CKD) >90 (>60 ml/min/1.73 sqM)
[2022-10-01 12:47] LABS: Glucose,Whole Blood 192 mg/dL (70-110)
--- NOTE | 2022-10-01 15:18 | CT ---
EXAMINATION TYPE: CT pelvis w con DATE OF EXAM: 10/01/2022 COMPARISON: NONE HISTORY: 56-year-old male R10.32, LT groin pain TECHNIQUE: Contiguous axial scanning of the abdomen pelvis following administration of 100 ml Isovue 300 IV contrast. Delayed images through the bladder and coronal/sagittal reconstructions performed. CT DLP: 2224.00 mGycm Automated exposure control for dose reduction was used. FINDINGS: No dilated small bowel or free fluid. Scattered mild stool. Normal appendix. No pericolonic inflammatory change. Bladder urine distended. Scattered pelvic phlebolith. Prostate gland enlargement 5.1 cm wide. There is a patulous left inguinal canal with some focal narrowing at the level of the superficial ing uinal ring, coronal image 25. Suspect a small fat-containing indirect left inguinal hernia and some t race fluid at the level of narrowing. No pelvic lymphadenopathy seen. Bones: Hypertrophic facet arthropathy lower lumbar spine. 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 Possibly sequela of prior injury or inflammation. IMPRESSION: 1. SUSPECT A SMALL FATTY INDIRECT LEFT INGUINAL HERNIA. THE OPENING ACROSS THE SUPERFICIAL INGUINAL R ING IS TIGHT AND NARROWS DOWN, CORONAL IMAGE 25, AND THERE IS SOME TRACE FOCAL FLUID AT THIS LEVEL. C ORRELATE FOR SOME ASSOCIATED NONSPECIFIC MILD INFLAMMATION. 2. MILD PROSTATOMEGALY OF 5.1 CM. 3. 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
== END | disposition home or self-care (01) ==
LOC: RADCTMAIN 10:36
PROVIDERS: ATTEND Family Medicine
DX: N40.0 Benign prostatic hyperplasia without lower urinary tract symptoms (principal); M43.17 Spondylolisthesis, lumbosacral region
CPT/HCPCS: 82565; 84520; 72193; Q9967